=== PATIENT | male | born 2000 | race Caucasian/White ===

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

== ENCOUNTER 2019-03-12 19:47 | Inpatient (IN) | payer MEDICAID ==
[~2019-03-12] VITALS: Ht 185.4 cm; Wt 69.4 kg
[~2019-03-12 19:47] MED LIST: SERT100T12 PO
[2019-03-13 00:18] VITALS: BP 121/66
[2019-03-13] MEDS ORDERED: ZOLPIDEM TARTRATE 10 MG TABLET PO PRN (00:30)
[2019-03-13] MEDS ORDERED: HALOPERIDOL 5 MG TABLET PO PRN (00:30)
[2019-03-13] MEDS ORDERED: PRAZ2 PO (01:21)
[2019-03-13] MEDS ORDERED: ESCI10TA PO (01:21)
[2019-03-13] MEDS ORDERED: OLAN10TA3 PO (01:21)
[2019-03-13 01:36] VITALS: BP 127/74
[2019-03-13] MEDS ORDERED: INFLUENZA VIRUS VACCINE QVS 2019-20 (3YR+)/PF 60 MCG/0.5 ML SYRINGE IM ONE (02:00)
[2019-03-13] MEDS: LORazepam 1 MG TABLET PO PRN ×2 (12:40→17:30)
[2019-03-13] MEDS: ESCITALOPRAM OXALATE 20 MG TABLET PO SCH (12:40)
[2019-03-13 16:00] VITALS: BP 119/73
[2019-03-13] MEDS: QUEtiapine FUMARATE 50 MG ER TABLET PO SCH (20:13)
[2019-03-14 07:03] VITALS: BP 117/71
[2019-03-14 08:00] VITALS: BP 106/64
[2019-03-14] MEDS: ESCITALOPRAM OXALATE 20 MG TABLET PO SCH (08:00)
[2019-03-14 11:52] LABS: APPEARANCE,URINE CLEAR (CLEAR); BILIRUBIN,URINE NEGATIVE (NEGATIVE); GLUCOSE, URINE (UA) NEGATIVE (NEGATIVE); KETONES,URINE NEGATIVE (NEGATIVE); LEUKOCYTE ESTERASE ,URINE NEGATIVE (NEGATIVE); NITRATE,URINE NEGATIVE (NEGATIVE); OCCULT BLOOD,URINE NEGATIVE (NEGATIVE); PROTEIN,URINE NEGATIVE (NEGATIVE); UROBILINOGEN,URINE 0.2 mg/dL (<=1.0)
[2019-03-14 12:12] LABS: AMPHET/METH SCREEN,URINE NEGATIVE (NEGATIVE); BARBITURATE SCREEN, URINE NEGATIVE (NEGATIVE); BENZODIAZEPINES SCREEN,URINE NEGATIVE (NEGATIVE); CANNABINOID SCREEN,URINE NEGATIVE (NEGATIVE); COCAINE SCREEN,URINE NEGATIVE (NEGATIVE); METHADONE SCREEN, URINE NEGATIVE (NEGATIVE); OPIATE SCREEN,URINE NEGATIVE (NEGATIVE)
[2019-03-14 12:14] LABS: PHENCYCLIDINE SCREEN,URINE NEGATIVE (NEGATIVE)
[2019-03-14] MEDS: LORazepam 1 MG TABLET PO PRN (12:44)
[2019-03-14 16:04] VITALS: BP 114/69
[2019-03-14] MEDS: QUEtiapine FUMARATE 50 MG ER TABLET PO SCH (20:04)
[2019-03-15 05:56] VITALS: BP 118/76
[2019-03-15 08:03] VITALS: BP 110/65
[2019-03-15] MEDS: ESCITALOPRAM OXALATE 20 MG TABLET PO SCH (08:28)
[2019-03-15 16:01] VITALS: BP 109/73
[2019-03-15] MEDS: QUEtiapine FUMARATE 300 MG ER TABLET PO SCH (21:00)
[2019-03-16 01:33] VITALS: BP 112/68
[2019-03-16] MEDS: LORazepam 1 MG TABLET PO PRN (07:41)
[2019-03-16] MEDS: ESCITALOPRAM OXALATE 20 MG TABLET PO SCH (08:08)
[2019-03-16 08:32] VITALS: BP 121/60
[2019-03-16 16:22] VITALS: BP 124/68
[2019-03-16] MEDS: QUEtiapine FUMARATE 300 MG ER TABLET PO SCH (20:04)
[2019-03-17 00:41] VITALS: BP 104/65
[2019-03-17] MEDS: ESCITALOPRAM OXALATE 20 MG TABLET PO SCH (08:25)
[2019-03-17 08:38] VITALS: BP 109/67
[2019-03-17 16:00] VITALS: BP 118/67
[2019-03-17] MEDS: QUEtiapine FUMARATE 300 MG ER TABLET PO SCH (20:43)
[2019-03-18 00:25] VITALS: BP 129/88
[2019-03-18 08:14] VITALS: BP 120/66
[2019-03-18] MEDS: ESCITALOPRAM OXALATE 20 MG TABLET PO SCH (08:29)
[2019-03-18] MEDS ORDERED: ESCI20TA PO (09:19)
[2019-03-18] MEDS ORDERED: QUET300T5 PO (09:19)
== END 2019-03-18 13:25 | disposition home or self-care (01) | DRG 751 ==
LOC: B3A 03-13 01:14 → B2S 03-16 19:34
PROVIDERS: ADMIT Psychiatry & Neurology Psychiatry; ATTEND Psychiatry & Neurology Psychiatry
DX: F33.2 Major depressive disorder, recurrent severe without psychotic features (principal); R45.851 Suicidal ideations; Z91.5 Personal history of self-harm; F12.90 Cannabis use, unspecified, uncomplicated; F60.3 Borderline personality disorder
CPT/HCPCS: 80307

== ENCOUNTER 2020-04-17 16:03 | Emergency (ER) | payer MEDICAID, OTHER ==
[~2020-04-17] VITALS: Ht 188 cm; Wt 72.7 kg
[~2020-04-17 16:03] MED LIST changes: +ESCI20TA87 PO; +QUET300T5 PO; -SERT100T12 PO
[2020-04-17] MEDS ORDERED: TRAZ-252 PO (16:23)
[2020-04-17] MEDS ORDERED: NALT50TA6 PO (16:23)
[2020-04-17] MEDS ORDERED: VENL50TA44 PO (16:23)
[2020-04-17 16:56] VITALS: BP 116/77
== END 2020-04-17 17:40 | disposition home or self-care (01) ==
LOC: EMS 16:07
DX: F41.9 Anxiety disorder, unspecified (principal); Z91.018 Allergy to other foods
CPT/HCPCS: 99283; Z7502

== ENCOUNTER 2021-04-26 16:30 | Inpatient (IN) | payer MEDICAID, OTHER ==
[~2021-04-26] VITALS: Ht 188 cm; Wt 80.1 kg
[~2021-04-26 16:30] MED LIST changes: -ESCI20TA87 PO; +NALT50TA6 PO; -QUET300T5 PO; +TRAZ-252 PO; +VENL50TA44 PO
[2021-04-26 17:15] LABS: BASOPHILS % (AUTO) 0.9 % (0.0-2.0); EOSINOPHILS % (AUTO) 1.6 % (1.0-6.0); HEMATOCRIT 42.7 % (41-53); HEMOGLOBIN 14.8 g/dL (13.5-17.5); LYMPHOCYTES % (AUTO) 18.3 % (22.0-44.0); MEAN CORPUSCULAR HEMOGLOBIN 30.8 pg (26.0-34.0); MEAN CORPUSCULAR HGB CONC 34.7 G/dL (31.0-37.0); MEAN CORPUSCULAR VOLUME 89 fL (80-100); MONOCYTES # (AUTO) 0.4 K/uL (0.1-1.0); MONOCYTES % (AUTO) 8.1 % (2.0-9.0); NEUTROPHILS # (AUTO) 3.8 K/uL (1.8-7.7); NEUTROPHILS % (AUTO) 71.1 % (40.0-70.0); PLATELET COUNT (AUTO) 223 K/uL (150-450); RED BLOOD CELL COUNT(AUTO) 4.82 MIL/uL (4.50-5.90); RED CELL DISTRIBUTION WIDTH 12.6 % (11.5-14.5)
[2021-04-26 17:22] LABS: ANION GAP 12 mmol/L (8-16); CARBON DIOXIDE 26 mmol/L (22-29); CHLORIDE 107 mmol/L (98-107); GLOMERULAR FILTR. RATE CALC > 60 mL/min (>60); GLUCOSE,RANDOM 98 mg/dL (70-110); SODIUM SERUM 145 mmol/L (136-145); UREA NITROGEN, BLOOD 17 mg/dL (7-18)
[2021-04-26 17:23] LABS: CALCIUM, TOTAL 9.4 mg/dL (8.8-10.5)
[2021-04-26 17:29] LABS: ALANINE AMINOTRANSFERASE 16 U/L (12-78); ALBUMIN 4.5 g/dL (3.4-5.0); ALKALINE PHOSPHATASE 42 U/L (46-116); ASPARTATE AMINOTRANSFERASE 11 U/L (15-37); BILIRUBIN,TOTAL 0.5 mg/dL (0.1-1.0); TOTAL PROTEIN, SERUM 7.8 g/dL (6.4-8.2)
[2021-04-26 18:40] LABS: AMPHET/METH SCREEN,URINE NEGATIVE (NEGATIVE); BARBITURATE SCREEN, URINE NEGATIVE (NEGATIVE); BENZODIAZEPINES SCREEN,URINE NEGATIVE (NEGATIVE); CANNABINOID SCREEN,URINE NEGATIVE (NEGATIVE); COCAINE SCREEN,URINE NEGATIVE (NEGATIVE); METHADONE SCREEN, URINE NEGATIVE (NEGATIVE); OPIATE SCREEN,URINE NEGATIVE (NEGATIVE)
[2021-04-26 18:48] LABS: PHENCYCLIDINE SCREEN,URINE NEGATIVE (NEGATIVE)
[2021-04-26 19:27] LABS: COVID AG,FIA SOURCE NASOPHARYNGEAL
[2021-04-26] MEDS ORDERED: LORazepam 2 MG TABLET PO PRN (20:00)
[2021-04-26] MEDS ORDERED: ZOLPIDEM TARTRATE 10 MG TABLET PO PRN (20:00)
[2021-04-26] MEDS ORDERED: QUEtiapine FUMARATE 100 MG TABLET PO PRN (20:00)
[2021-04-26 22:09] VITALS: BP 146/61
[2021-04-26] MEDS ORDERED: DiphenhydrAMINE HCL 25 MG CAPSULE PO ONE (22:30)
[2021-04-26] MEDS ORDERED: INFLUENZA VIRUS VACCINE QVS 2021-22 (6MO+)/PF 60 MCG/0.5 ML SYRINGE IM. ONE (22:45)
[2021-04-27 07:02] LABS: CHOL/HDL RATIO 3.1 (4.2-7.3)
[2021-04-27 08:00] VITALS: BP 112/67
[2021-04-27] MEDS ORDERED: ACETAMINOPHEN 325 MG TABLET PO PRN (12:15)
[2021-04-27] MEDS ORDERED: PETROLATUM,WHITE 28 GM JELLY TP PRN (12:15)
[2021-04-27] MEDS ORDERED: IBUPROFEN 400 MG TABLET PO PRN (12:15)
[2021-04-27] MEDS ORDERED: LOPERAMIDE HCL 2 MG CAPSULE PO PRN (12:15)
[2021-04-27] MEDS ORDERED: CloNIDine HCL 0.1 MG TABLET PO PRN (12:15)
[2021-04-27] MEDS ORDERED: GuaiFENesin/D-METHORPHAN [SUGAR-FREE] 200-20MG/10 ML SYRUP UDCUP PO PRN (12:15)
[2021-04-27] MEDS ORDERED: ALBUTEROL SULFATE HFA 90 MCG/PUFF 8 GM INHALER IH PRN (12:15)
[2021-04-27] MEDS ORDERED: MAG HYDROX/AL HYDROX/SIMETH ES 30 ML SUSPENSION UDCUP PO PRN (12:15)
[2021-04-27] MEDS ORDERED: ONDANSETRON HCL 4 MG TABLET PO PRN (12:15)
[2021-04-27] MEDS ORDERED: DOCUSATE SODIUM 100 MG CAPSULE PO PRN (12:15)
[2021-04-27] MEDS ORDERED: MAGNESIUM HYDROXIDE SUSPENSION 30 ML UDCUP PO PRN (12:15)
[2021-04-27] MEDS ORDERED: NICOTINE 14 MG/24 HOUR PATCH TD PRN (12:15)
[2021-04-27] MEDS: VENLAFAXINE HCL 75 MG ER CAPSULE PO SCH (14:42)
[2021-04-27 17:00] VITALS: BP 112/78
[2021-04-28] MEDS: VENLAFAXINE HCL 75 MG ER CAPSULE PO SCH ×2 (08:32→09:52)
[2021-04-28 12:15] VITALS: BP 120/70
[2021-04-28 16:31] VITALS: BP 128/72
[2021-04-29] MEDS: VENLAFAXINE HCL 75 MG ER CAPSULE PO SCH (08:23)
[2021-04-29 11:05] VITALS: BP 119/67
== END 2021-04-29 14:40 | disposition home or self-care (01) | DRG 751 ==
LOC: EMS 16:33 → 3EI 22:00
PROVIDERS: ADMIT Psychiatry & Neurology Psychiatry; ATTEND Psychiatry & Neurology Psychiatry
DX: F33.2 Major depressive disorder, recurrent severe without psychotic features (principal); F41.9 Anxiety disorder, unspecified; Z91.51 Personal history of suicidal behavior; I10 Essential (primary) hypertension; Z20.822 Contact with and (suspected) exposure to COVID-19
CPT/HCPCS: 43277; 80053; 80061; 85025; 99285; G0480